=== PATIENT | male | born 1960 | race Native Hawaiian/Other Pacific Islander ===

== ENCOUNTER 2020-02-04 09:09 | Day surgery (SDC) | payer MEDICARE, MEDICAID ==
--- NOTE | 2020-02-04 07:55 | HP ---
DATE OF SURGERY: 02/04/2020 HISTORY OF PRESENT ILLNESS: The patient is a 59 year old with last colonoscopy five years ago and had polyp. No bloody stools. No change in bowel movements. No abdominal pain. Family history negative for colon cancer. Given his history of polyps he is in need of follow up screening colonoscopy. I feel he is a candidate. PAST MEDICAL HISTORY: Diabetes on insulin pump. He has some hyperlipidemia as well. PAST SURGICAL HISTORY: Neck surgery. Back surgery. Rotator cuff. Right carotid surgery. He had prior colonoscopy in the past. MEDICATIONS: Simvastatin, Lisinopril. He said he is on Fiasp. ALLERGIES: NKDA. FAMILY HISTORY: Negative for colon cancer. SOCIAL HISTORY: He denies alcohol abuse. He had been a smoker in the past. REVIEW OF SYSTEMS: Fourteen systems reviewed. Negative or noncontributory as above and per preadmission questionnaire. PHYSICAL EXAMINATION: GENERAL: No acute distress. HEENT: Sclerae nonicteric. NECK: No JVD. CHEST: Equal excursion, nonlabored breathing. CVS: Regular rate and rhythm. ABDOMEN: Soft. No peritoneal signs. EXTREMITIES: No significant edema. NEURO: Alert, oriented, moving extremities symmetrically. No gross motor deficits noted. RECTAL: Deferred timed to endoscopy exam. PSYCH: Appropriate mood and affect. IMPRESSION: History of polyp. I feel he is in need of follow up colonoscopy. I feel he is a candidate for colonoscopy. He was shown the risk sheet and explained the procedure in detail including but not limited to bleeding or infection, risk of bowel injury or perforation possibly requiring open procedure, risk of missed or nondiagnosis or incomplete exam possibly requiring barium enema, other studies or procedures, general risk of anesthesia or sedation, risk of bowel prep but not limited to. Consent obtained, will proceed with outpatient colonoscopy.
[~2020-02-04 09:09] MED LIST: Lactated Ringers 1,000 ML IV SCH
[2020-02-04] MEDS ORDERED: DIPRIVAN 200 MG/20 ML IV ONE (11:00)
[2020-02-04] MEDS ORDERED: Lactated Ringers 1,000 ML IV ONE (11:40)
[2020-02-04 12:27] VITALS: BP 148/80; PULSE 87; O2SAT 99
--- NOTE | 2020-02-05 09:21 | OP ---
SURGERY DATE/TIME: 02/04/2020 1103 PREOPERATIVE DIAGNOSIS: History of polyps, need follow up surveillance screening colonoscopy. POSTOPERATIVE DIAGNOSES: 1) Small polyps. 2) Fair bowel prep. 3) Mild diverticulosis. PROCEDURES: Colonoscopy to cecum with hot biopsy removal of small early polyps versus hyperplastic lesion sigmoid colon x3 or 4. SURGEON: Dr. Hugo Hooper. ANESTHESIA: MAC. ESTIMATED BLOOD LOSS: Minimal. INDICATIONS: As noted above. Risks and benefits explained in detail but not limited to and consent obtained. DESCRIPTION OF PROCEDURE AND FINDINGS: The patient is taken to the operating room. MAC anesthesia introduced. After official time out and no disagreement with planned procedure, digital rectal exam did not reveal any rectal masses. Video colonoscope inserted and passed up the somewhat tortuous sigmoid, descending, transverse and ascending colon. With position change on his back and external pressure the scope was finally able to reach the cecum. Appendiceal orifice and valve was photo documented. Prep overall was fair. There was a little bit of foamy, liquidy stool, semisolid stool suction irrigated as clear as possible just slightly limiting exam for a tiny lesion. The scope slowly and carefully withdrawn. There were no signs of any large polyps, masses or obstructing lesions. There were some small early polyps in the sigmoid colon. There were three or four removed with hot biopsy forceps. Good hemostasis noted. Otherwise he had some mild diverticulosis in the left colon. He had some minimal internal hemorrhoids. There were no signs of any large polyps, masses or obstructing lesions just the small, early polyps versus hyperplastic lesions removed with hot biopsy forceps. Good hemostasis noted. The patient tolerated the procedure well. There was no family available to discuss the findings with.
== END 2020-02-04 12:28 | disposition home or self-care (01) ==
LOC: SDC 09:09
PROVIDERS: ATTEND Surgery
DX: Z09 Encounter for follow-up examination after completed treatment for conditions other than malignant neoplasm (principal); Z86.010 Personal history of colon polyps; K57.30 Diverticulosis of large intestine without perforation or abscess without bleeding; D12.5 Benign neoplasm of sigmoid colon; E11.9 Type 2 diabetes mellitus without complications; Z79.4 Long term (current) use of insulin; E78.5 Hyperlipidemia, unspecified
CPT/HCPCS: 82947; J2704